=== PATIENT | female | born 2005 | race Caucasian/White ===

== ENCOUNTER → 2024-12-14 | Outpatient (CLI) | payer OTHER ==
[2024-12-14 14:32] LABS: ALT 23 U/L (8-44); AST 26 U/L (13-35); Carbon Dioxide 23.4 mmol/L (21.6-31.8); Chloride 108 mmol/L (96-109); Potassium 4.7 mmol/L (3.5-5.5); Sodium 144 mmol/L (135-145)
== END | disposition home or self-care (01) ==
LOC: LABWHC1 09:19
PROVIDERS: ATTEND Physician Assistant
DX: L70.0 Acne vulgaris (principal)
CPT/HCPCS: 36415; 80051; 82565; 84402; 84403; 84450; 84460; 84520

== ENCOUNTER → 2025-05-14 | Outpatient (CLI) | payer OTHER ==
[2025-05-14 16:08] LABS: ALT 20 U/L (8-44); AST 21 U/L (13-35); Anion Gap 12.00 mmol/L (4.00-12.00); Blood Urea Nitrogen 15.1 mg/dL (9.0-27.0); Carbon Dioxide 23.0 mmol/L (21.6-31.8); Chloride 104 mmol/L (96-109); Potassium 4.7 mmol/L (3.5-5.5); Sodium 139 mmol/L (135-145)
== END | disposition home or self-care (01) ==
LOC: LABWHC1 11:53
PROVIDERS: ATTEND Physician Assistant
DX: L70.0 Acne vulgaris (principal)
CPT/HCPCS: 36415; 80051; 82565; 84402; 84403; 84450; 84460; 84520